=== PATIENT | male | born 1965 | race Caucasian/White ===

== ENCOUNTER 2023-01-30 13:54 | Inpatient (IN) | payer MEDICAID ==
[~2023-01-30] VITALS: Ht 182.9 cm; Wt 133.2 kg
[~2023-01-30 13:54] MED LIST: ACET-2247 PO; AUD NEB; AZIT-104 PO; DULO20CA71 PO; FAMO20 PO; LURA20TA PO; LURA40TA2 PO; MULT-1239 PO; NICO-803 TD; PRED-554 PO
[2023-01-30] MEDS ORDERED: ACETAMINOPHEN 325 MG TABLET PO PRN (15:00)
[2023-01-30] MEDS ORDERED: GuaiFENesin/D-METHORPHAN [SUGAR-FREE] 200-20MG/10 ML SYRUP UDCUP PO PRN (15:00)
[2023-01-30] MEDS ORDERED: MAG HYDROX/AL HYDROX/SIMETH ES 30 ML SUSPENSION UDCUP PO PRN (15:00)
[2023-01-30] MEDS ORDERED: PROMETHAZINE HCL 25 MG TABLET PO PRN (15:00)
[2023-01-30] MEDS ORDERED: LURASIDONE HCL 20 MG TABLET PO PRN (15:00)
[2023-01-30] MEDS ORDERED: MAGNESIUM HYDROXIDE SUSPENSION 30 ML UDCUP PO PRN (15:00)
[2023-01-30] MEDS ORDERED: HydrOXYzine PAMOATE 50 MG CAPSULE PO PRN (15:00)
[2023-01-30] MEDS ORDERED: LOPERAMIDE HCL 2 MG CAPSULE PO PRN (15:00)
[2023-01-30] MEDS ORDERED: ZOLPIDEM TARTRATE 10 MG TABLET PO PRN (15:00)
[2023-01-30] MEDS ORDERED: TUBERCULIN, PURIFIED PROTEIN DERIVATIVE 5 TU/0.1 ML SYRINGE ID ONE (15:00)
[2023-01-30] MEDS ORDERED: LORazepam 2 MG TABLET PO PRN (15:00)
[2023-01-30] MEDS ORDERED: LURASIDONE HCL 40 MG TABLET PO SCH (17:30)
[2023-01-30] MEDS ORDERED: MELATONIN 5 MG TABLET PO SCH (21:00)
[2023-01-30 23:16] VITALS: BP 110/66
[2023-01-30 23:49] VITALS: BP 110/66
[2023-01-31] MEDS ORDERED: PNEUMOCOCCAL VACCINE POLYVALENT 0.5 ML VIAL [PPSV23] IM. ONE (00:30)
[2023-01-31] MEDS ORDERED: FOLIC ACID 1 MG TABLET PO SCH (09:00)
[2023-01-31] MEDS ORDERED: OMEGA-3/DHA/EPA/FISH OIL 1,000 MG CAPSULE PO SCH (09:00)
[2023-01-31] MEDS ORDERED: MULTIVITAMINS WITH MINERALS, THERAPEUTIC TABLET PO SCH (09:00)
[2023-01-31] MEDS ORDERED: DULoxetine HCL 20 MG CAPSULE PO SCH (09:00)
[2023-01-31] MEDS ORDERED: NALTREXONE HCL 50 MG TABLET PO SCH (09:00)
[2023-01-31] MEDS: THIAMINE 100 MG TABLET PO SCH ×3 (10:57→16:30)
[2023-01-31 12:04] LABS: FREE T4 (FREE THYROXINE) 0.97 ng/dL (0.76-1.46); THYROID STIMULATING HORMONE 2.44 uIU/mL (0.36-3.74)
[2023-01-31] MEDS: LURASIDONE HCL 40 MG TABLET PO SCH ×2 (16:25→16:30)
== END 2023-01-31 17:16 | disposition left against medical advice (07) | DRG 750 ==
LOC: 3EI 23:00
PROVIDERS: ADMIT Psychiatry & Neurology Psychiatry; ATTEND Psychiatry & Neurology Psychiatry
DX: F25.9 Schizoaffective disorder, unspecified (principal); F17.200 Nicotine dependence, unspecified, uncomplicated; F60.0 Paranoid personality disorder; Z53.29 Procedure and treatment not carried out because of patient's decision for other reasons; I10 Essential (primary) hypertension; J44.9 Chronic obstructive pulmonary disease, unspecified; Z63.9 Problem related to primary support group, unspecified; Z65.3 Problems related to other legal circumstances; Z59.9 Problem related to housing and economic circumstances, unspecified; Z91.041 Radiographic dye allergy status; Z55.9 Problems related to education and literacy, unspecified
CPT/HCPCS: 84439; 84443; 86592